=== PATIENT | female | born 1975 | race Caucasian/White ===

== ENCOUNTER 2018-07-07 12:32 | Emergency (ER) | payer SELFPAY ==
[2018-07-07] MEDS: HYDROcodone/APAP 5/325MG 1 TAB TABLET PO (13:48)
== END 2018-07-07 13:54 | disposition home or self-care (01) ==
LOC: ER 12:32
DX: G89.29 Other chronic pain (principal); M54.2 Cervicalgia; F41.9 Anxiety disorder, unspecified; F31.9 Bipolar disorder, unspecified
CPT/HCPCS: 99283

== ENCOUNTER 2018-07-15 10:26 | Emergency (ER) | payer SELFPAY ==
[~2018-07-15] VITALS: Ht 160 cm; Wt 65.8 kg
[~2018-07-15 10:26] MED LIST: HYDR-971 PO; IBUP-1060 PO; TRAM50TA PO
[2018-07-15 10:32] VITALS: BP 121/62
--- NOTE | 2018-07-15 10:49 | PHYS DOC ---
Past Medical History Past Medical History: Anxiety, Bipolar, Depression, Other Additional Past Medical Histor: CHRONIC PAIN Past Surgical History: Other Additional Past Surgical Histo: CARPAL TUNNEL, RIGHT KNEE Alcohol Use: Occasionally Drug Use: None Adult General Chief Complaint Chief Complaint: COUGH HPI HPI Patient is a 43-year-old female who presents to the emergency department for evaluation. She states for the past week, she has had nasal congestion, with rhinorrhea, and a cough, productive of small amounts of whitish sputum. She has not had any chest congestion, or shortness of breath. She has not had any fevers or chills. She has had some sinus pressure. She denies any otalgia or sore throat. She has not had any nausea, vomiting, or diarrhea. There are no alleviating, or exacerbating factors to her symptoms otherwise. Review of Systems Review of Systems Constitutional: Denies fever or chills [] Eyes: Denies change in visual acuity, redness, or eye pain. Denies watery eye drainage [] HENT: Reports nasal congestion and pressure. Denies otalgia or sore throat [] Respiratory: Denies shortness of breath [] Cardiovascular: The patient denies any shortness of breath, chest pain, palpitations, or orthopnea[] GI: Denies abdominal pain, nausea, vomiting, bloody stools or diarrhea [] Musculoskeletal: Denies back pain or joint pain [] Integument: Denies rash or skin lesions [] Neurologic: Denies headache, Allergies Allergies Allergies Coded Allergies Type Severity Reaction Last Updated Verified Penicillins Allergy Intermediate 07/07/18 Yes Physical Exam Physical Exam PHYSICAL EXAM: CONSTITUTIONAL: Well developed, well nourished HEAD: normocephalic, atraumatic EENT: PERRL, EOMI. Conjunctivae normal color, sclerae non-icteric; moist mucous membranes. Oropharynx appears normal. Tympanic membranes are normal bilaterally. There is mild maxillary sinus pressure bilaterally, left slightly greater than right. NECK: Supple, non-tender; no meningismus. LUNGS: Lungs CTA, breathing even and unlabored. Normal air movement. HEART: Regular rate and rhythm, no murmur CHEST: No deformity; non-tender ABDOMEN: The abdomen is soft, and non-tender, no masses or bruits. EXTREM: Normal ROM; no deformity, no calf tenderness. Normal pulses palpable in all extremities. There is no pedal edema. SKIN: No rash; no diaphoresis NEURO: Alert; normal speech and cognition; CN's grossly intact; strength grossly intact without focal deficit. BACK: No CVA TTP. Current Patient Data Vital Signs Vital Signs Date Time Temp Pulse Resp B/P (MAP) Pulse Ox O2 Delivery O2 Flow Rate FiO2 07/15/18 10:32 98.8 89 18 121/62 (81) 99 98.8 EKG EKG [] Radiology/Procedures Radiology/Procedures [] Course & Med Decision Making Course & Med Decision Making Pt condition remains stable. We discussed expectant managment and use of OTC decongestants, and return precautions. We discussed Atbx, which do not appear indicated at this time. Dragon Disclaimer Dragon Disclaimer This electronic medical record was generated, in whole or in part, using a voice recognition dictation system. Departure Departure Impression: Primary Impression: Sinusitis Disposition: HOME, SELF-CARE Condition: STABLE Referrals: NO PCP (PCP) Patient Instructions: Sinusitis DORETHA NICOLE MD Jul 15, 2018 10:49
== END 2018-07-15 11:05 | disposition home or self-care (01) ==
LOC: ER 10:26
DX: J32.0 Chronic maxillary sinusitis (principal); F41.9 Anxiety disorder, unspecified; F31.9 Bipolar disorder, unspecified; Z88.0 Allergy status to penicillin
CPT/HCPCS: 99281